=== PATIENT | male | born 1965 | race African-American/Black ===

== ENCOUNTER 2017-05-29 19:25 | Emergency (ER) | payer MEDICARE ==
[~2017-05-29] VITALS: Ht 190.5 cm; Wt 158.8 kg
--- NOTE | 2017-05-29 19:29 | PHYS DOC ---
Adult General Chief Complaint Chief Complaint: POST-OP PROBLEM HPI HPI Patient is a 52 year old -[place] male who presents with drainage from his umbilical hernia repair. He states on May 18 he had his hernia repaired at [facility] by Dr. Carias. He states he's been using oxycodone as needed for pain. Partially 2 hours prior to arrival he was having a bowel movement when he noticed drainage from his belly button. He states he took an oxycodone and his pain was a 7 out of 4. Denies fevers chills nausea or vomiting. He has a follow-up appointment tomorrow morning with his surgeon at [facility]. Review of Systems Review of Systems Constitutional: Denies fever or chills [] Eyes: Denies change in visual acuity, redness, or eye pain [] HENT: Denies nasal congestion or sore throat [] Respiratory: Denies cough or shortness of breath [] Cardiovascular: No additional information not addressed in HPI [] GI: Positive for abdominal pain, Denies nausea, vomiting, bloody stools or diarrhea [] : Denies dysuria or hematuria [] Musculoskeletal: Denies back pain or joint pain [] Integument: Denies rash or skin lesions [] Neurologic: Denies headache, focal weakness or sensory changes [] Endocrine: Denies polyuria or polydipsia [] All other systems were reviewed and found to be within normal limits, except as documented in this note. Current Medications Current Medications Current Medications Medications (Trade) Dose Ordered Sig/Chanda Start Time Stop Time Status Last Admin Dose Admin Morphine Sulfate 2 mg PRN Q15MIN PRN 05/29/17 19:45 05/30/17 19:44 Allergies Allergies Allergies Coded Allergies Type Severity Reaction Last Updated Verified levofloxacin Allergy Intermediate 05/29/17 Yes Physical Exam Physical Exam Constitutional: Well developed, well nourished, no acute distress, non-toxic appearance. [] HENT: Normocephalic, atraumatic, bilateral external ears normal, oropharynx moist, no oral exudates, nose normal. [] Eyes: PERRLA, EOMI, conjunctiva normal, no discharge. [] Neck: Normal range of motion, no tenderness, supple, no stridor. [] Cardiovascular:Heart rate regular rhythm, no murmur [] Lungs & Thorax: Bilateral breath sounds clear to auscultation [] Abdomen: Bowel sounds normal, soft, mild tenderness palpation around his umbilicus with a black is packed with gauze soaked with thin brownish liquid, no masses, no pulsatile masses. Incisions noted through the umbilicus, intact, nonerythematous Skin: Warm, dry, no erythema, no rash. [] Back: No tenderness, no CVA tenderness. [] Extremities: No tenderness, no cyanosis, no clubbing, ROM intact, no edema. [] Neurologic: Alert and oriented X 3, normal motor function, normal sensory function, no focal deficits noted. [] Psychologic: Affect normal, judgement normal, mood normal. [] EKG EKG [] Radiology/Procedures Radiology/Procedures [] Impressions: Postop drainage from incision site Course & Med Decision Making Course & Med Decision Making Pertinent Labs and Imaging studies reviewed. (See chart for details) I recommended labs, CT scan of his abdomen pelvis to evaluate for the drainage from his op site. I suspect this is a seroma since his drainage has stopped. I do not see any active bleeding. The patient does not want a CT scan or labs performed at this time. He wants to go home and follow-up with surgeon tomorrow. His 's at bedside they both agree not to have anything done. I explained to them my thought process and why I want labs and a CT scan and they state they understood and will defer at this time. His blood pressure was 2:15 systolic and repeat is 185. He started have any chest pain his abdominal pain has improved and there is no additional drainage noted. Wound cultures have been sent the wound has been redressed as it was when he arrived. Return precautions given. He and his are agreeable and being discharged home at this time. Dragon Disclaimer Dragon Disclaimer This electronic medical record was generated, in whole or in part, using a voice recognition dictation system. Departure Departure Impression: Primary Impression: Draining postoperative wound Disposition: 01 HOME, SELF-CARE Condition: STABLE Patient Instructions: Hernia, Surgical Repair, Care After Additional Instructions: You were seen tonight for drainage out of your wound around your bellybutton. I recommend that you have a CT scan of your abdomen and pelvis and blood work to evaluate this drainage. However at this time you would rather be discharged home. I explained to you that the CAT scan is what is needed to look inside your abdomen to see why you're having this drainage. You stated you understood this and would rather be discharged home and follow-up with you surgeon tomorrow. Your blood pressure was elevated and has improved, however it still high. You will need take your blood pressure meds as previous instructed. Return back to ER if you have worsening pain, more drainage, increasing pain, fevers or other concerns. AMRIK HOUSE MD May 29, 2017 19:29
[2017-05-29] MEDS ORDERED: MORPHINE SULFATE 2 MG/ML DISP.SYRIN. IV/SQ PRN (19:45)
[2017-05-29 20:06] VITALS: BP 189/89
== END 2017-05-29 20:24 | disposition home or self-care (01) ==
LOC: ER 19:25
DX: K91.89 Other postprocedural complications and disorders of digestive system (principal); Z98.890 Other specified postprocedural states; Z88.1 Allergy status to other antibiotic agents
CPT/HCPCS: 87071; 87075; 87205; 99284